=== PATIENT | male | born 1955 | race African-American/Black ===

== ENCOUNTER 2017-03-19 10:53 | Emergency (ER) | payer BC, SELFPAY ==
--- NOTE | 2017-03-19 12:35 | ULT ---
LEFT LOWER EXTREMITY VENOUS DOPPLER: 03/19/2017 PROVIDED CLINICAL HISTORY: Left leg pain. FINDINGS: Blandon-scale and color Doppler sonography with spectral analysis was performed of the left common femor al, femoral, popliteal, posterior tibial, greater saphenous, and profunda femoral veins, demonstratin g a normal sonographic appearance to each. IMPRESSION: No sonographic evidence for left lower extremity deep venous thrombosis. POS: [facility]
[2017-03-19] MEDS ORDERED: HYDROcodone/Acetaminophen 10/325 mg Tablet ONE (16:11)
--- NOTE | 2017-03-19 16:26 | RAD ---
LEFT FOOT THREE VIEWS: 03/19/17 HISTORY: Left foot pain. FINDINGS: Lisfranc joint alignment is anatomic. Pes planus is apparent on the lateral view. There is mild to mo derate osteophytosis throughout the foot. Osseous structures are demineralized. Degenerative changes are most pronounced at the interphalangeal joint of the big toe. There is pencil sharpener erosive changes involving the distal phalanges of the toes, with relative sparring of the third toe. No aggressive osseous erosions are otherwise demonstrated. IMPRESSION: In addition to the osteoarthritic changes of the left foot, there is pencil sharpener erosive changes involving the distal phalanges. This is more likely related to chronic collagen vascular disease gabo n inflammatory arthritis. POS: [facility]
[2017-03-19 16:32] LABS: #Eosinphils 0.2 thou/uL (0.0-0.7); #Monocytes 0.6 thou/uL (0.11-0.59); #Neutrophils 9.6 thou/uL (1.40-6.50); %Basophils 0.3 % (0.0-1.0); %Eosinophils 1.2 % (0.0-10.0); %Lymphocytes 22.3 % (21.0-51.0); %Monocytes 4.4 % (0.0-10.0); Hematocrit 47.3 % (42.0-52.0); Mean Platelet Volume 7.3 fL (7.4-10.4); Red Blood Cell (RBC) Count 4.96 mill/uL (4.70-6.10); White Blood Cell (WBC) Count 13.4 thou/uL (4.8-10.8)
[2017-03-19 16:57] LABS: ALT (SGPT) 9 U/L (8-55); AST (SGOT) 12 U/L (5-34); Alkaline Phosphatase 106 U/L (40-150); Anion Gap 15 mmol/L (10-20); BUN (Urea Nitrogen) 10 mg/dL (8.4-25.7); Bilirubin, Total 0.4 mg/dL (0.2-1.2); Calc. Creatinine Clearance 0 mL/min (70-130); Calcium 10.4 mg/dL (7.8-10.44); Carbon Dioxide 27 mmol/L (23-31); Chloride 100 mmol/L (98-107); Estimated GFR-MDRD Greater than 90; Globulin 4.6 g/dL (2.4-3.5); Protein, Total 9.3 g/dL (5.8-8.1)
== END 2017-03-19 17:35 | disposition home or self-care (01) ==
LOC: ERS 10:53
DX: L03.032 Cellulitis of left toe (principal); S91.102A Unspecified open wound of left great toe without damage to nail, initial encounter; I10 Essential (primary) hypertension; Z71.6 Tobacco abuse counseling; F17.210 Nicotine dependence, cigarettes, uncomplicated
CPT/HCPCS: 36415; 80053; 85025; 85652; 86140; 87070; 87077; 87186; 87205; 99406

== ENCOUNTER 2017-05-15 08:43 | Emergency (ER) | payer SELFPAY ==
[2017-05-15 09:43] LABS: #Eosinphils 0.3 thou/uL (0.0-0.7); #Lymphocytes 3.1 thou/uL (1.20-3.40); #Neutrophils 9.3 thou/uL (1.40-6.50); %Basophils 0.3 % (0.0-1.0); %Eosinophils 2.3 % (0.0-10.0); %Lymphocytes 22.5 % (21.0-51.0); %Monocytes 7.2 % (0.0-10.0); %Neutrophils 67.6 % (42.0-75.0); Hemoglobin 13.2 g/dL (14.0-18.0); Mean Corpuscular HGB CONC 32.7 g/dL (32.0-36.0); Mean Corpuscular Hemoglobin 30.3 pg (27.0-31.0); Mean Corpuscular Volume 92.8 fl (80.0-94.0); Platelet Count 340 thou/uL (130-400); RBC Distribution Width 12.4 % (11.5-14.5); Red Blood Cell (RBC) Count 4.35 mill/uL (4.70-6.10); White Blood Cell (WBC) Count 13.7 thou/uL (4.8-10.8)
[2017-05-15 10:05] LABS: AST (SGOT) 12 U/L (5-34); Bilirubin, Total 0.3 mg/dL (0.2-1.2); Calcium 9.4 mg/dL (7.8-10.44); Chloride 99 mmol/L (98-107); Potassium 3.7 mmol/L (3.5-5.1); Sodium 135 mmol/L (136-145)
[2017-05-15 10:09] LABS: ALT (SGPT) 8 U/L (8-55); Albumin 4.1 g/dL (3.4-4.8); Alkaline Phosphatase 97 U/L (40-150); BUN (Urea Nitrogen) 10 mg/dL (8.4-25.7); Calc. Creatinine Clearance 0 mL/min (70-130); Carbon Dioxide 27 mmol/L (23-31); Estimated GFR-MDRD Greater than 90; Globulin 4.7 g/dL (2.4-3.5); Glucose 88 mg/dL (80-115); Protein, Total 8.8 g/dL (5.8-8.1)
[2017-05-15 10:10] LABS: Anion Gap 13 mmol/L (10-20)
[2017-05-15] MEDS ORDERED: Ondansetron HCl/PF 4 MG/2 ML Vial ONE (10:55)
--- NOTE | 2017-05-15 11:25 | CT ---
CT ANGIOGRAM OF THE ABDOMEN AND PELVIS AND BILATERAL LOWER EXTREMITIES WITH IV CONTRAST AND 3D MIP RE CONSTRUCTIONS: PROVIDED CLINICAL HISTORY: Left lower extremity claudication. FINDINGS: The visualized lung edwards are free of significant opacity. The liver, spleen, pancreas, kidneys, and adrenal glands demonstrate an unremarkable CT appearance. There is no bowel dilatation, inflammatory fat stranding, free fluid, or lymph node enlargement appar ent. The abdominal aorta is nonaneurysmal. The celiac, superior mesenteric, bilateral renal and inferior mesenteric arteries appear patent. There is a patent appearance to both common iliac arteries. There is occlusion of the left external iliac artery from the common iliac bifurcation through the inferior epigastric origin of the common f emoral artery. The right external iliac artery demonstrates no high-grade stenosis. The internal il iac arteries demonstrate multifocal irregularity. Involving the right lower extremity, the right common femoral, profunda femoral, and proximal to mid superficial femoral arteries demonstrate no high-grade stenosis. Multifocal irregularity involving t he right superficial femoral artery. There is focal short-segment occlusion of the right distal supe rficial femoral artery just proximal to the adductor hiatus. The popliteal artery on the right demon strates no high-grade stenosis. There is multifocal atherosclerotic irregularity involving the anter ior tibial, posterior tibial, and peroneal arteries. The posterior tibial artery is opacified to the level of the mid calf. The anterior tibial and peroneal arteries are opacified to the level of the foot. On the left, the common femoral and profunda femoral arteries demonstrate no high-grade stenosis. Th ere is atherosclerotic irregularity involving the proximal left superficial femoral artery. There is long-segment occlusion of the superficial femoral artery commencing approximately the mid thigh and extending approximately 10 cm distal to this. There is reconstitution at about the level of the addu ctor hiatus. There is multifocal irregularity of the left popliteal artery. There is multifocal irr egularity involving the left anterior tibia, posterior tibial, and peroneal arteries. The posterior tibial and peroneal arteries appear opacified to the level of the ankle. The anterior tibial artery appears opacified to the level of the distal calf. The osseous structures demonstrate no concerning osteoblastic or osteolytic lesions. IMPRESSION: 1. Occlusion of the left external iliac artery with reconstitution at the common femoral via epigast pamela collateralization. 2. Long-segment occlusion of the distal left superficial femoral artery. 3. Short-segment occlusion of the distal right superficial femoral artery. 4. Other findings as above. POS: [facility]
[2017-05-15] MEDS ORDERED: ISOVUE-370 76%-LOCM 1 ML ONE (11:49)
--- NOTE | 2017-05-15 20:12 | CON ---
DATE OF CONSULTATION: 05/15/2017 HISTORY OF PRESENT ILLNESS: A 61-year-old gentleman rather poor historian who lives in [place]. He w as evidently seen by Dr. Maxwell today and referred to the emergency room with a 4-6 week history of left great toe that is painful and black. He was seen by Dr. Morse about 1 month ago. A callo us was taken off the great toe by Dr. Morse. PAST MEDICAL HISTORY: Significant for longstanding smoking history. He continues to smoke a half pa ck of cigarettes a day. He lives with a daughter for the past 2 years. 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 He admits that he cannot walk very far due to discomfort in his leg. He has had no fever at home. His past medical history i ncludes hypertension. He also has chronic pain for which he is on medication. MEDICATIONS: Some sort of blood pressure medication, he thinks amlodipine as well as gabapentin. PAST SURGICAL HISTORY: He has had robotic prostatectomy at [facility] in 2013. He has had previous back and neck surgery. ALLERGIES: He has no known allergies. PHYSICAL EXAMINATION: GENERAL: He is an alert, cooperative gentleman, sitting on the side of the stretcher. NECK: No carotid bruits. LUNGS: Clear to auscultation anteriorly. CARDIAC: Regular rate and rhythm. No murmurs. ABDOMEN: Soft, nontender. Healed incision just above the umbilicus was about 2 cm in length. EXTREMITIES: He has a palpable right femoral pulse, absent left femoral pulse. He has a strong Dopp ler signal in his right foot and I am unable to obtain any Doppler signals in his left foot. His lef t great toe is black and shriveled with no evidence of erythema, no tenderness or swelling in the ruchi t. A CT angiogram was done demonstrating occlusion of both superficial femoral arteries distally with th e left external iliac artery occluded at its origin and then extending down to the level of the circu mflex femoral vessels where his common femoral is patent. At this time, the patient probably needs a orto at least left femoral bypass. I have told him that we can proceed with this after he stopped sm oking for a couple of weeks. I will see him in the office in about 2 weeks and if he has stopped smo gerber can proceed with surgical intervention.
== END 2017-05-15 14:22 | disposition home or self-care (01) ==
LOC: ERS 08:43
DX: M79.675 Pain in left toe(s) (principal); I10 Essential (primary) hypertension; F17.210 Nicotine dependence, cigarettes, uncomplicated
CPT/HCPCS: 75635; 80053; 85025; 96374; 96375; J2270; J2405

== ENCOUNTER 2017-06-24 08:23 | Outpatient (CLI) | payer OTHER ==
[2017-06-24 08:47] VITALS: BMI 25.0
[2017-06-24 10:54] LABS: #Eosinphils 0.2 thou/uL (0.0-0.7); #Monocytes 0.8 thou/uL (0.11-0.59); #Neutrophils 10.8 thou/uL (1.40-6.50); %Basophils 0.1 % (0.0-1.0); %Eosinophils 1.2 % (0.0-10.0); %Lymphocytes 14.2 % (21.0-51.0); %Monocytes 6.1 % (0.0-10.0); %Neutrophils 78.3 % (42.0-75.0); Hemoglobin 11.9 g/dL (14.0-18.0); Mean Corpuscular HGB CONC 32.3 g/dL (32.0-36.0); Mean Corpuscular Hemoglobin 29.6 pg (27.0-31.0); Mean Corpuscular Volume 91.8 fl (80.0-94.0); Mean Platelet Volume 6.9 fL (7.4-10.4); Platelet Count 415 thou/uL (130-400); RBC Distribution Width 12.4 % (11.5-14.5); Red Blood Cell (RBC) Count 4.01 mill/uL (4.70-6.10); White Blood Cell (WBC) Count 13.8 thou/uL (4.8-10.8)
--- NOTE | 2017-06-24 11:04 | RAD ---
2 VIEW CHEST: Date: 06/24/17 CLINICAL HISTORY: Pre-admission evaluation. FINDINGS: The lungs are clear. There is no effusion or pneumothorax. Cardiac silhouette is normal in size. Ther e is mild osseous degenerative change. IMPRESSION: No focal consolidation. POS: [facility]
[2017-06-24 11:14] LABS: Anion Gap 13 mmol/L (10-20); BUN (Urea Nitrogen) 13 mg/dL (8.4-25.7); Calc. Creatinine Clearance 104 mL/min (70-130); Calcium 9.6 mg/dL (7.8-10.44); Carbon Dioxide 28 mmol/L (23-31); Chloride 98 mmol/L (98-107); Estimated GFR-MDRD Greater than 90; Glucose 78 mg/dL (80-115); Potassium 4.4 mmol/L (3.5-5.1); Sodium 135 mmol/L (136-145)
--- NOTE | 2017-07-21 11:03 | EKG ---
Test Reason : Blood Pressure : / mmHG Vent. Rate : 099 BPM Atrial Rate : 099 BPM P-R Int : 142 ms QRS Dur : 084 ms QT Int : 336 ms P-R-T Axes : 080 065 042 degrees QTc Int : 431 ms Normal sinus rhythm Voltage criteria for left ventricular hypertrophy Abnormal ECG When compared with ECG of 11-MAR-2016 11:25, No significant change was found Confirmed by YASIR AMEZQUITA M.D. ([id number] on 07/21/2017 11:03:10 AM Referred By: CELESTE Confirmed By:YASIR AMEZQUITA M.D.
== END 2017-06-24 08:24 | disposition home or self-care (01) ==
LOC: LABBT 08:23
PROVIDERS: ATTEND Thoracic Surgery (Cardiothoracic Vascular Surgery)
DX: Z01.818 Encounter for other preprocedural examination (principal); I73.9 Peripheral vascular disease, unspecified
CPT/HCPCS: 71046; 80048; 85025; 86850; 86900; 86901; 93005; 93010

== ENCOUNTER 2017-06-24 09:30 | Inpatient (IN) | payer OTHER, SELFPAY ==
[2017-06-25] MEDS ORDERED: CEFAZOLIN/Water 2 GM/20 ML SYRINGE ONE (06:06)
[2017-06-25] MEDS ORDERED: Heparin 10,000 UNITS/1 ML VIAL 30,000 UNITS in Sodium Chloride 0.9% 1,000 ML FS SCH (06:30)
[2017-06-25] MEDS ORDERED: Fentanyl 100 MCG/2 ML VIAL ONE ×2 (07:24→10:13)
[2017-06-25] MEDS ORDERED: Protamine Sulfate 50 MG/5 ML VIAL ONE (09:13)
--- NOTE | 2017-06-25 09:32 | HP ---
HISTORY OF PRESENT ILLNESS: This is a 61-year-old gentleman with rest pain in his left great toe peggy n that is painful and black. He was initially seen by Dr. Morse about 2-1/2 months ago where a ca llous was taken off the great toe. The patient at that time was diagnosed as having severe periphera l arterial disease. He has a longstanding smoking history and was smoking a half to one pack of ciga rettes a day and living with his daughter for the past 2 years. 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 He is unable to ambulate any sig nificant distance due to discomfort in his leg. PAST MEDICAL HISTORY: Includes hypertension and chronic pain. PAST SURGICAL HISTORY: Includes robotic prostatectomy in 2013, previous lumbar and cervical spine thomas rgery. REVIEW OF SYSTEMS: The patient is having difficulty sleeping due to nocturnal rest pain in his left foot. It is not relieved with tramadol. SOCIAL HISTORY: As of his last visit 1 month ago, he was still smoking 3 cigarettes a day, but is ev idently stopped this. MEDICATIONS: Include lisinopril 5 mg a day, gabapentin 300 at bedtime, pain medication. He was also instructed to begin aspirin 81 mg a day on his last visit 1 month ago. He has a history of noseblee ds when he was on aspirin in the remote past when he was seen by Dr. Sy for a stress test. PHYSICAL EXAMINATION: VITAL SIGNS: Blood pressure 120/80, height 5 feet 8 inches, weight 153. GENERAL: Alert, cooperative gentleman, well-nourished, in no distress. NECK: No carotid bruits. CARDIAC: Regular rate and rhythm. No murmurs. LUNGS: Clear to auscultation. ABDOMEN: Soft, nontender, nondistended. EXTREMITIES: His left great toe is black with no drainage, but does have some odor. He has palpable right femoral pulse with an absent left femoral pulse. He has a strong Doppler signal in his right foot and no Doppler signal in his left foot. Workup includes a CT angiogram demonstrating occluded bilateral superficial femoral arteries with a l eft external iliac artery occlusion. Potentially, the patient could have a left pelvic approach for a left common iliac to femoral artery bypass or aortobifemoral bypass. He will receive bowel prep an d we will plan on surgical intervention this week.
[2017-06-25] MEDS ORDERED: Promethazine HCl 25 MG/ML VIAL SLOW IVP PRN ×2 (10:12→11:39)
[2017-06-25] MEDS ORDERED: Ondansetron HCl/PF 4 MG/2 ML Vial IVP PRN ×3 (10:12→11:39)
[2017-06-25] MEDS ORDERED: Promethazine HCl 25 MG/ML VIAL IM PRN ×2 (10:12→10:17)
[2017-06-25] MEDS ORDERED: diphenhydrAMINE 50 MG/ML VIAL IVP PRN (10:17)
[2017-06-25] MEDS ORDERED: Naloxone HCl 0.4 mg/ml Vial IV PRN (10:17)
[2017-06-25] MEDS ORDERED: diphenhydrAMINE 25 MG CAP PO PRN (10:17)
[2017-06-25] MEDS ORDERED: diphenhydrAMINE 50 MG/ML VIAL IM PRN (10:17)
[2017-06-25] MEDS ORDERED: Zolpidem Tartrate 5 MG TAB PO PRN (10:17)
[2017-06-25] MEDS ORDERED: Communication Order-Pharmacy FS SCH (10:30)
[2017-06-25] MEDS ORDERED: Fentanyl 100 MCG/2 ML VIAL SLOW IVP PRN ×2 (11:39)
[2017-06-25] MEDS ORDERED: Acetaminophen 325 MG TAB PO PRN (11:39)
[2017-06-25] MEDS ORDERED: hydrALAZINE 20 MG/ML VIAL SLOW IVP PRN (11:39)
[2017-06-25] MEDS ORDERED: HYDROcodone/Acetaminophen 5/325 mg Tablet PO PRN ×2 (11:39)
[2017-06-25] MEDS ORDERED: Phenylephrine 10 MG/NS 250 ML 250 ML IVPB PRN (11:39)
[2017-06-25] MEDS ORDERED: Nitroglycerin 50 MG/250 ML BOT 250 ML IVPB PRN (11:39)
[2017-06-25] MEDS: Lactated Ringer's 1,000 ML IV SCH (11:40)
--- NOTE | 2017-06-25 12:10 | OP ---
PREOPERATIVE DIAGNOSIS: Gangrene, left foot with rest pain. PROCEDURE: Aorto left common femoral right external iliac artery bypass with 14 x 7 mm Hemashield gr aft. SURGEON: Venkatesh Haynes M.D. MERCHANDISE FLOW TEAM LEADER: Dr. Clarke. TRANSFUSION: None. ESTIMATED BLOOD LOSS: 100 mL PROCEDURE IN DETAIL: After adequate anesthesia had been obtained, the patient was prepped and draped . Dr. Clarke exposed the left common femoral artery while I performed a midline abdominal incision. There was a small hernia related to previous midline incision and this was excised. Bowel was rotate d to the right exposing the distal aorta and proximal right common iliac artery. Tunnel was created to the right external iliac artery and into the left groin, retro-ureter fashion. Heparin was admini stered and ACT was checked. The distal aorta was cross clamped as was the common iliac arteries. Th e distal aorta was then oversewn with a double layer of 3-0 Prolene suture, following which the 14 x 7 mm graft was anastomosed in an end-to-end fashion to the distal aorta with a running 4-0 Prolene thomas ture. Following this, limbs were brought through the tunnels and in the left groin, the common femor al artery was opened and an end-to-side anastomosis completed to the distal common femoral artery. F ollowing this, the right external iliac artery was opened in a similar end-to-side anastomosis comple amanda. Protamine was then given to reverse the heparin partially. Graft was reperitonealized in two a reas, following which the bowel was returned to the abdominal cavity. Fascia was closed with a doubl e stranded PDS suture. Subcutaneous tissue and skin were closed in layers in the left groin and then the abdominal incision was closed. The patient is to be taken to the ICU in guarded condition.
[2017-06-25] MEDS ORDERED: PROPOFOL 200 MG/20 ML VIAL ONE (13:28)
[2017-06-25] MEDS ORDERED: Lidocaine 1% PF 5 ML VIAL ONE (13:28)
[2017-06-25] MEDS ORDERED: Dexamethasone 20 MG/5 ML VIAL ONE (13:28)
[2017-06-25] MEDS ORDERED: Glycopyrrolate 0.2 MG/ML 5 ML SYRINGE ONE (13:28)
[2017-06-25] MEDS ORDERED: Ondansetron HCl/PF 4 MG/2 ML Vial ONE (13:28)
[2017-06-25] MEDS ORDERED: Heparin 10,000 UNITS/ 10 ML VIAL ONE (13:28)
[2017-06-25] MEDS: CEFAZOLIN/Water 2 GM/20 ML SYRINGE SLOW IVP SCH ×2 (14:30→22:37)
[2017-06-26] MEDS: Lactated Ringer's 1,000 ML IV SCH ×4 (00:38→21:26)
[2017-06-26 05:36] LABS: Anion Gap 10 mmol/L (10-20); BUN (Urea Nitrogen) 10 mg/dL (8.4-25.7); Calc. Creatinine Clearance 102 mL/min (70-130); Calcium 8.7 mg/dL (7.8-10.44); Carbon Dioxide 28 mmol/L (23-31); Chloride 102 mmol/L (98-107); Estimated GFR-MDRD Greater than 90; Glucose 83 mg/dL (80-115); Sodium 136 mmol/L (136-145)
[2017-06-26] MEDS: CEFAZOLIN/Water 2 GM/20 ML SYRINGE SLOW IVP SCH (05:47)
[2017-06-26 05:54] LABS: Band 9 % (5-11); Hemoglobin 9.6 g/dL (14.0-18.0); Lymphocytes 19 % (21-51); MDiff Complete? YES; Mean Corpuscular HGB CONC 32.9 g/dL (32.0-36.0); Mean Corpuscular Hemoglobin 29.4 pg (27.0-31.0); Mean Corpuscular Volume 89.5 fl (80.0-94.0); Mean Platelet Volume 6.6 fL (7.4-10.4); Neutrophil 72 % (42-75); PLT Morphology Comment Appears Adequate; Platelet Count 341 thou/uL (130-400); RBC Distribution Width 12.5 % (11.5-14.5); Red Blood Cell (RBC) Count 3.25 mill/uL (4.70-6.10); White Blood Cell (WBC) Count 17.1 thou/uL (4.8-10.8)
[2017-06-26] MEDS: Enoxaparin Sodium 30 MG/0.3 ML SYRINGE SC SCH (09:21)
[2017-06-26] MEDS: Acetaminophen 1,000 MG in Premix Bag 1 BAG IVPB SCH ×2 (12:35→18:21)
[2017-06-26] MEDS: Morphine CADD 1 MG/ML CADD IVPB PRN (18:20)
[2017-06-27] MEDS: Acetaminophen 1,000 MG in Premix Bag 1 BAG IVPB SCH ×3 (00:43→15:32)
[2017-06-27] MEDS: Lactated Ringer's 1,000 ML IV SCH ×3 (05:43→21:01)
[2017-06-27 07:30] LABS: Hemoglobin 9.7 g/dL (14.0-18.0); Mean Corpuscular HGB CONC 32.9 g/dL (32.0-36.0); Mean Corpuscular Hemoglobin 29.3 pg (27.0-31.0); Mean Corpuscular Volume 89.1 fl (80.0-94.0); Mean Platelet Volume 6.6 fL (7.4-10.4); Platelet Count 331 thou/uL (130-400); RBC Distribution Width 12.3 % (11.5-14.5); Red Blood Cell (RBC) Count 3.32 mill/uL (4.70-6.10); White Blood Cell (WBC) Count 20.7 thou/uL (4.8-10.8)
[2017-06-27 07:48] LABS: Anion Gap 11 mmol/L (10-20); BUN (Urea Nitrogen) 7 mg/dL (8.4-25.7); Calc. Creatinine Clearance 113 mL/min (70-130); Calcium 8.7 mg/dL (7.8-10.44); Carbon Dioxide 28 mmol/L (23-31); Chloride 98 mmol/L (98-107); Estimated GFR-MDRD Greater than 90; Glucose 86 mg/dL (80-115); Potassium 3.7 mmol/L (3.5-5.1); Sodium 133 mmol/L (136-145)
[2017-06-27] MEDS: Metoprolol Tartrate 25 MG TAB PO SCH ×2 (08:18→21:01)
[2017-06-27 08:30] LABS: Band 8 % (5-11); Lymphocytes 13 % (21-51); MDiff Complete? YES; Monocytes 4 % (0-10); Neutrophil 75 % (42-75); PLT Morphology Comment Appears Adequate; Polychromasia SLIGHT = 2-3 cells (100X) (0-2/hpf)
[2017-06-27] MEDS: Enoxaparin Sodium 30 MG/0.3 ML SYRINGE SC SCH (08:57)
[2017-06-27] MEDS ORDERED: Fentanyl 100 MCG/2 ML VIAL ONE ×2 (11:04)
[2017-06-27] MEDS ORDERED: CEFAZOLIN/Water 2 GM/20 ML SYRINGE ONE (11:19)
[2017-06-27] MEDS ORDERED: Promethazine HCl 25 MG/ML VIAL IM PRN (13:32)
[2017-06-27] MEDS ORDERED: Ondansetron HCl/PF 4 MG/2 ML Vial IVP PRN (13:32)
[2017-06-27] MEDS ORDERED: Promethazine HCl 25 MG/ML VIAL SLOW IVP PRN (13:32)
--- NOTE | 2017-06-27 13:46 | OP ---
DATE OF PROCEDURE: 06/27/2017 PREOPERATIVE DIAGNOSIS: Gangrenous left foot with peripheral artery disease. POSTOPERATIVE DIAGNOSIS: Gangrenous left foot with peripheral artery disease. PROCEDURE: Left nhthx-sec-kulx amputation. SURGEON: Dr. Venkatesh Haynes ANESTHESIA: General. ESTIMATED BLOOD LOSS: 300. PROCEDURE: After adequate anesthesia had been obtained, the patient was prepped and draped. Initial ly, incision was made around the base of the great toe extending onto the dorsum of the foot around t he obviously gangrenous portion. There was no bleeding and tissues did not appear viable at the site of incision. A second incision was then made around the base of the second toe extending out from t he initial incision and once again there did not appear to be any viable tissue. This wound was then draped off from the field and a formal below knee amputation was carried out with a posterior flap. Bones were divided and specimen removed from the field. Hemostasis was obtained, following which 2 layers were used to close the gastroc muscle over the tibia and fibula. The area had been thoroughly irrigated prior to closure. Shubham were used on the skin and the patient had a knee immobilizer pl aced to be taken to the recovery room and then ICU.
--- NOTE | 2017-06-27 14:48 | RAD ---
CHEST 1 VIEW: HISTORY: Vascular surgery. Postop. COMPARISON: 06/24/17. FINDINGS: Cardiac silhouette is unremarkable. Pulmonary vasculature is slightly engorged. Large dense infiltr ate over the right mid chest is favored to be within the anterior segment right upper lobe. Linear a telectasis projects over each lung base. Mediastinum is midline. No evidence of pneumothorax. IMPRESSION: 1. Right upper lobe infiltrate. Clinical correlation regarding other signs and symptoms of right up per lobe pneumonitis is required. 2. Chronic obstructive pulmonary disease. 3. Bibasilar atelectasis. POS: [facility]
[2017-06-27 15:12] LABS: #Eosinphils 0.1 thou/uL (0.0-0.7); #Lymphocytes 1.6 thou/uL (1.20-3.40); #Neutrophils 18.2 thou/uL (1.40-6.50); %Eosinophils 0.3 % (0.0-10.0); %Lymphocytes 7.6 % (21.0-51.0); %Monocytes 4.7 % (0.0-10.0); %Neutrophils 87.4 % (42.0-75.0); Hemoglobin 9.2 g/dL (14.0-18.0); Mean Corpuscular HGB CONC 33.2 g/dL (32.0-36.0); Mean Corpuscular Hemoglobin 29.7 pg (27.0-31.0); Mean Corpuscular Volume 89.4 fl (80.0-94.0); Mean Platelet Volume 6.1 fL (7.4-10.4); Platelet Count 311 thou/uL (130-400); RBC Distribution Width 12.3 % (11.5-14.5); White Blood Cell (WBC) Count 20.8 thou/uL (4.8-10.8)
[2017-06-27] MEDS ORDERED: PHENYLEPHRINE-NS 100 MCG/ML 10 ML SYRINGE ONE (16:57)
[2017-06-27] MEDS ORDERED: Lidocaine 1% PF 5 ML VIAL ONE (16:57)
[2017-06-27] MEDS ORDERED: Succinylcholine Chloride 20 MG/ML 10 ml SYRINGE FS ONE (16:57)
[2017-06-27] MEDS ORDERED: PROPOFOL 200 MG/20 ML VIAL ONE (16:57)
[2017-06-27] MEDS: Piperacillin/Tazobactam 3.375 GM in Sodium Chloride 0.9% 100 ML IVPB SCH ×2 (17:00→23:49)
[2017-06-27] MEDS: Acetaminophen 325 MG TAB PO PRN (21:01)
[2017-06-27] MEDS: Tamsulosin HCl 0.4 MG CAP PO SCH (21:02)
[2017-06-28] MEDS: Acetaminophen 325 MG TAB PO PRN (00:20)
[2017-06-28 05:15] LABS: #Eosinphils 0.1 thou/uL (0.0-0.7); #Lymphocytes 2.1 thou/uL (1.20-3.40); #Monocytes 1.2 thou/uL (0.11-0.59); #Neutrophils 16.1 thou/uL (1.40-6.50); %Eosinophils 0.4 % (0.0-10.0); %Lymphocytes 10.6 % (21.0-51.0); %Monocytes 6.1 % (0.0-10.0); %Neutrophils 82.9 % (42.0-75.0); Hemoglobin 8.4 g/dL (14.0-18.0); Mean Corpuscular HGB CONC 33.1 g/dL (32.0-36.0); Mean Corpuscular Hemoglobin 29.4 pg (27.0-31.0); Mean Corpuscular Volume 88.6 fl (80.0-94.0); Mean Platelet Volume 6.5 fL (7.4-10.4); Platelet Count 312 thou/uL (130-400); RBC Distribution Width 12.4 % (11.5-14.5); Red Blood Cell (RBC) Count 2.85 mill/uL (4.70-6.10); White Blood Cell (WBC) Count 19.4 thou/uL (4.8-10.8)
[2017-06-28 05:35] LABS: Anion Gap 13 mmol/L (10-20); BUN (Urea Nitrogen) 6 mg/dL (8.4-25.7); Calc. Creatinine Clearance 112 mL/min (70-130); Calcium 8.3 mg/dL (7.8-10.44); Carbon Dioxide 25 mmol/L (23-31); Chloride 96 mmol/L (98-107); Estimated GFR-MDRD Greater than 90; Glucose 97 mg/dL (80-115); Potassium 3.7 mmol/L (3.5-5.1); Sodium 130 mmol/L (136-145)
[2017-06-28] MEDS: Piperacillin/Tazobactam 3.375 GM in Sodium Chloride 0.9% 100 ML IVPB SCH ×3 (05:58→17:05)
[2017-06-28] MEDS: Lactated Ringer's 1,000 ML IV SCH ×3 (05:59→16:44)
[2017-06-28] MEDS ORDERED: Potassium Chloride 20 MEQ in Premix Bag 1 BAG IVPB SCH (07:30)
[2017-06-28] MEDS: Metoprolol Tartrate 25 MG TAB PO SCH ×2 (09:07→21:07)
[2017-06-28] MEDS: Enoxaparin Sodium 30 MG/0.3 ML SYRINGE SC SCH (09:08)
--- NOTE | 2017-06-28 09:09 | RAD ---
CHEST 1 VIEW: Date: 06/28/17 HISTORY: Bypass. Infiltrate. Follow-up. COMPARISON: 06/27/17. FINDINGS: Cardiac silhouette is magnified by projection. Pulmonary vasculature is upper limits of normal. Infil trate at the right upper lobe is again demonstrated. Parenchymal opacity at the right lung base has p rogressed slightly. Linear atelectasis at the left base is stable. IMPRESSION: Slight interval progression right lower lobe infiltrate. Right upper lobe infiltrate is stable. Bhaskar nued radiographic follow-up is suggested. POS: [facility]
--- NOTE | 2017-06-28 09:55 | PRG ---
DATE OF SERVICE: 06/28/2017 SUBJECTIVE: Awake, alert and responsive. He said he is less short of breath. OBJECTIVE: VITAL SIGNS: Temperature 98, blood pressure 120/68, pulse 80, respiration rate 18, sats 94%. CHEST: Chest reveals decreased breath sounds without any wheezing. CARDIAC: Normal S1, S2, no gallops. ABDOMEN: Soft. No masses. LABORATORY DATA: White count 19,000, H&H is 8 and 25, platelet count normal. Sodium 130. IMPRESSION: Chronic obstructive pulmonary disease, right-sided pneumonia, status post aortobifemoral . PLAN: Continue neb treatment, Zosyn, supportive care. We will follow.
[2017-06-28] MEDS ORDERED: Acetaminophen 325 MG TAB PO PRN (18:00)
[2017-06-28] MEDS: Tamsulosin HCl 0.4 MG CAP PO SCH (21:07)
[2017-06-28] MEDS: Morphine CADD 1 MG/ML CADD IVPB PRN (21:08)
[2017-06-29] MEDS: Piperacillin/Tazobactam 3.375 GM in Sodium Chloride 0.9% 100 ML IVPB SCH ×4 (00:08→17:11)
[2017-06-29] MEDS: Lactated Ringer's 1,000 ML IV SCH (03:37)
[2017-06-29 04:20] LABS: #Eosinphils 0.3 thou/uL (0.0-0.7); #Lymphocytes 1.8 thou/uL (1.20-3.40); #Neutrophils 13.3 thou/uL (1.40-6.50); %Basophils 0.1 % (0.0-1.0); %Eosinophils 1.6 % (0.0-10.0); %Lymphocytes 10.6 % (21.0-51.0); %Monocytes 6.3 % (0.0-10.0); %Neutrophils 81.3 % (42.0-75.0); Hemoglobin 7.7 g/dL (14.0-18.0); Mean Corpuscular HGB CONC 34.3 g/dL (32.0-36.0); Mean Corpuscular Hemoglobin 30.6 pg (27.0-31.0); Mean Corpuscular Volume 89.1 fl (80.0-94.0); Mean Platelet Volume 6.8 fL (7.4-10.4); Platelet Count 341 thou/uL (130-400); RBC Distribution Width 12.5 % (11.5-14.5); White Blood Cell (WBC) Count 16.4 thou/uL (4.8-10.8)
[2017-06-29 04:31] LABS: Anion Gap 10 mmol/L (10-20); BUN (Urea Nitrogen) 5 mg/dL (8.4-25.7); Calc. Creatinine Clearance 112 mL/min (70-130); Calcium 8.6 mg/dL (7.8-10.44); Carbon Dioxide 29 mmol/L (23-31); Chloride 99 mmol/L (98-107); Estimated GFR-MDRD Greater than 90; Glucose 92 mg/dL (80-115); Potassium 3.9 mmol/L (3.5-5.1); Sodium 134 mmol/L (136-145)
[2017-06-29] MEDS: Enoxaparin Sodium 30 MG/0.3 ML SYRINGE SC SCH (07:48)
[2017-06-29] MEDS: Metoprolol Tartrate 25 MG TAB PO SCH ×2 (07:48→21:01)
--- NOTE | 2017-06-29 07:54 | RAD ---
CHEST 1 VIEW: Date: 06/29/17 HISTORY: Surgery. Follow-up. COMPARISON: 06/28/17. FINDINGS: Cardiac silhouette is magnified by projection. Pulmonary vasculature is similar in appearance to the prior study and degree of congestion. Patchy infiltrate throughout the right lung and the left lung b ase is again demonstrated. Mediastinum is midline. No evidence of pneumothorax. IMPRESSION: Pulmonary vascular congestion, bilateral infiltrates, and other findings are stable. POS: [facility]
[2017-06-29] MEDS ORDERED: Fentanyl 100 MCG/2 ML VIAL SLOW IVP PRN (08:06)
[2017-06-29] MEDS ORDERED: HYDROcodone/Acetaminophen 5/325 mg Tablet PO PRN (08:06)
[2017-06-29] MEDS ORDERED: Furosemide 20 MG/2 ML VIAL SLOW IVP SCH (08:45)
[2017-06-29] MEDS: HYDROcodone/Acetaminophen 5/325 mg Tablet PO PRN ×4 (08:52→21:02)
--- NOTE | 2017-06-29 11:03 | CON ---
DATE OF CONSULTATION: 06/27/2017 HISTORY OF PRESENT ILLNESS: A 61-year-old gentleman in the ICU status post left BK amputation for peripheral vascular disease. He had a chest x-ray taken, which shows a dense upper lung infiltrate and a smaller infiltrate in the left base. He had an x-ray taken not long ago which was normal suggesting this could be an aspiration related event. He is denying any difficulty breathing, coughing or chest pain, chills or sweats. He has ongoing tobacco abuse. Pack a day for most of his life. He has got girlfriend at the bedside who gives additional information. PAST MEDICAL HISTORY: Chronic pain and hypertension. PAST SURGICAL HISTORY: Prostate, lumbar spinal surgery and chronic pain, left foot. MEDICATIONS: Hydrocodone 10, gabapentin 300, Norvasc 10. SOCIAL/FAMILY HISTORY: Hepainter. REVIEW OF SYSTEMS: Ten point negative. PHYSICAL EXAMINATION: VITAL SIGNS: Temperature 98, pulse 112, blood pressure 130\74 sats 93%. GENERAL: Awake, responsive. HEENT: Nose unremarkable, throat poor dental care. NECK: No adenopathy. CHEST: Reveals decreased breath sounds, no wheezing or crackles. CARDIAC: Normal S1, S2. No gallops. ABDOMEN: Soft. No masses. NEUROLOGIC: He is awake, alert, responsive. EXTREMITIES: No edema. Recent left BK amputation of right leg unremarkable. LABORATORY DATA: White count 20,000, hemoglobin 9, hematocrit 27, platelet count is 231. His electrolytes are normal. X-ray shows the above described bilateral bronchopneumonia, right greater than left. IMPRESSION: 1. Status post below-knee amputation, left. 2. Chronic obstructive pulmonary disease. 3. Pneumonia. 4. Peripheral vascular disease. 5. Ongoing tobacco abuse. PLAN: I have added Zosyn to his antibiotic, neb treatment, supportive care. Will follow along the MICU. This is a consultation note, 70 minutes of which 50% was spent in direct patient care. GURMEET
--- NOTE | 2017-06-29 13:54 | PRG ---
DATE OF SERVICE: 06/29/2017 SUBJECTIVE: Awake, alert, and responsive. He said he is better. He is less short of breath, less c ough. OBJECTIVE: VITAL SIGNS: Sats are 95% on 3 liters, respirations 21, blood pressure 124/86, respiratory rate 18. CHEST: Bilateral rhonchi and crackles. CARDIAC: Normal S1-S2. No gallops. ABDOMEN: No mass. LABORATORY DATA: White count is 6000, H&H is 7 and 22, platelet count is normal. Electrolytes are n ormal. X-ray shows less edema. IMPRESSION: 1. Chronic obstructive pulmonary disease/pneumonia. 2. Status post aortofemoral bypass. PLAN: Continue Zosyn, neb treatment, supportive care, and PT. We will follow.
[2017-06-29] MEDS: Tamsulosin HCl 0.4 MG CAP PO SCH (21:01)
[2017-06-30] MEDS: Piperacillin/Tazobactam 3.375 GM in Sodium Chloride 0.9% 100 ML IVPB SCH ×2 (00:17→06:06)
[2017-06-30] MEDS: HYDROcodone/Acetaminophen 5/325 mg Tablet PO PRN ×4 (04:22→20:16)
[2017-06-30] MEDS: Enoxaparin Sodium 30 MG/0.3 ML SYRINGE SC SCH (08:41)
[2017-06-30] MEDS: Metoprolol Tartrate 25 MG TAB PO SCH ×2 (08:41→20:17)
[2017-06-30] MEDS: Amoxicillin/Potassium Clav 875 MG TAB PO SCH ×2 (12:19→20:17)
--- NOTE | 2017-06-30 15:26 | PRG ---
DATE OF SERVICE: 06/30/2017 SUBJECTIVE: This morning, he is awake, alert, and responsive. OBJECTIVE: VITAL SIGNS: Sats 98% on room air, temperature is 98, pulse 90, respiratory rate 18, and blood press ure 116/59. CHEST: He is coughing up some relatively clear sputum. Chest reveals rhonchi, right greater than le ft. CARDIAC: Normal S1 and S2, no gallops. ABDOMEN: Soft, no masses. IMPRESSION: Status post right-sided pneumonia with chronic obstructive pulmonary disease, hypertensi on, and peripheral vascular disease. PLAN: I switched him over to oral antibiotics. Continue neb treatments. He would probably be trans ferred out of the ICU. We will follow.
[2017-06-30] MEDS: Tamsulosin HCl 0.4 MG CAP PO SCH (20:17)
[2017-07-01] MEDS: HYDROcodone/Acetaminophen 5/325 mg Tablet PO PRN ×5 (02:35→22:12)
[2017-07-01 04:50] LABS: #Eosinphils 0.5 thou/uL (0.0-0.7); #Lymphocytes 1.9 thou/uL (1.20-3.40); #Monocytes 1.1 thou/uL (0.11-0.59); #Neutrophils 10.6 thou/uL (1.40-6.50); %Basophils 0.1 % (0.0-1.0); %Eosinophils 3.3 % (0.0-10.0); %Lymphocytes 13.7 % (21.0-51.0); %Monocytes 7.9 % (0.0-10.0); Hemoglobin 7.6 g/dL (14.0-18.0); Mean Corpuscular HGB CONC 33.1 g/dL (32.0-36.0); Mean Corpuscular Hemoglobin 29.3 pg (27.0-31.0); Mean Corpuscular Volume 88.5 fl (80.0-94.0); Mean Platelet Volume 6.2 fL (7.4-10.4); Platelet Count 474 thou/uL (130-400); RBC Distribution Width 12.6 % (11.5-14.5); White Blood Cell (WBC) Count 14.2 thou/uL (4.8-10.8)
[2017-07-01 05:25] VITALS: BMI 21.3
[2017-07-01] MEDS: Amoxicillin/Potassium Clav 875 MG TAB PO SCH ×2 (08:27→22:04)
[2017-07-01] MEDS: Metoprolol Tartrate 25 MG TAB PO SCH ×2 (08:27→22:05)
[2017-07-01] MEDS: Enoxaparin Sodium 30 MG/0.3 ML SYRINGE SC SCH (08:28)
[2017-07-01] MEDS: Docusate 100 MG CAP PO SCH ×2 (08:28→22:05)
--- NOTE | 2017-07-01 14:02 | PRG ---
DATE OF SERVICE: 07/01/2017 This morning he is awake, alert, responsive, less pain. PHYSICAL EXAMINATION: VITAL SIGNS: Blood pressure 130/69, sats are 100%, respirations 18. I's and O's 2940 in, 5085 out. CHEST: Chest reveals decreased breath sounds, no wheezing. CARDIAC: Normal S1, S2. NECK: Soft, no masses. LABORATORY DATA: White count 14,000, H&H 7 and 23, platelet count 474. IMPRESSION: 1. Status post left mugqf-guc-rtit amputation. 2. Gangrenous left foot. 3. Pneumonia. 4. Tobacco abuse. PLAN: Colace was initated as stool softener. Continue antibiotics. He can probably be transferred out of the ICU.
[2017-07-01] MEDS: Tamsulosin HCl 0.4 MG CAP PO SCH (22:04)
[2017-07-02] MEDS: HYDROcodone/Acetaminophen 5/325 mg Tablet PO PRN ×4 (04:45→20:38)
[2017-07-02] MEDS: Amoxicillin/Potassium Clav 875 MG TAB PO SCH ×2 (08:33→20:28)
[2017-07-02] MEDS: Metoprolol Tartrate 25 MG TAB PO SCH ×2 (08:33→20:27)
[2017-07-02] MEDS: Enoxaparin Sodium 30 MG/0.3 ML SYRINGE SC SCH (08:33)
[2017-07-02] MEDS: Docusate 100 MG CAP PO SCH ×2 (08:33→20:28)
--- NOTE | 2017-07-02 09:03 | PRG ---
DATE OF SERVICE: 07/02/2017 This morning he says he is better. PHYSICAL EXAMINATION: VITAL SIGNS: O2 sats 90% on room air, pulse is 93, respiration 14, temperature is 98, blood pressure 118/59. CHEST: Chest reveals decreased breath sounds, bilateral rhonchi, right greater than left. CARDIAC: Normal S1, S2, no gallops. ABDOMEN: Soft. IMPRESSION: 1. Right-sided pneumonia, probably aspiration. 2. Chronic obstructive pulmonary disease. 3. Tobacco abuse. 4. Left pkmvt-btv-uagg amputation. 5. Peripheral neuropathy. PLAN: Continue aggressive PT and supportive care. Disposition as per surgery.
[2017-07-02] MEDS: Tamsulosin HCl 0.4 MG CAP PO SCH (20:28)
[2017-07-03] MEDS: HYDROcodone/Acetaminophen 5/325 mg Tablet PO PRN ×2 (06:10→10:30)
[2017-07-03 08:21] VITALS: BP 112/63; TEMP 98.5
[2017-07-03] MEDS: Docusate 100 MG CAP PO SCH (09:39)
[2017-07-03] MEDS: Enoxaparin Sodium 30 MG/0.3 ML SYRINGE SC SCH (09:39)
[2017-07-03] MEDS: Metoprolol Tartrate 25 MG TAB PO SCH (09:39)
[2017-07-03] MEDS: Amoxicillin/Potassium Clav 875 MG TAB PO SCH (09:39)
--- NOTE | 2017-07-03 09:42 | DIS ---
DATE OF ADMISSION: 06/25/2017 DATE OF DISCHARGE: . HOSPITAL COURSE: This is a 61-year-old gentleman who presented to the emergency room about 2 months ago with a gangrenous toe. He ultimately underwent an aortobifemoral bypass. Postoperatively, he trejo d a good Doppler signal in his popliteal; however, had no Doppler signals in his foot. This was prob ably not inconsistent with his initial CT scan showing occlusion of his left SFA, right SFA and sever e tibioperoneal disease. It was elected to proceed with a left below knee amputation on 06/27/2017, which was performed. Course subsequently was unremarkable. His vital signs were stable and he was p articipating with therapy. At the time of discharge, he had minimal spotting from his abdominal inci joan on his gown; however, this incision overall looked good. His groin incision was clean and dry a nd his stump incision on the left showed some minimal bloody drainage, but otherwise skin appeared vi able. He will be discharged home today on amoxicillin 1 p.o. b.i.d., Tylenol #3, metoprolol 25 b.i.d . and he has been instructed to take an 81 aspirin daily. Discharge and follow up instructions have been given to he and his girlfriend/ and all questions have been answered.
--- NOTE | 2017-07-03 12:00 | PRG ---
DATE OF SERVICE: 07/03/2017 SUBJECTIVE: This morning, he is awake, alert, responsive. He is better. OBJECTIVE: VITAL SIGNS: Sats are 90% on room air, temperature 98, blood pressure 112/63. CHEST: No coughing. Decreased breath sounds without any wheezing. CARDIAC: Normal S1-S2. No gallops. ABDOMEN: Soft. No masses. IMPRESSION: Status post left bilateral knee amputation, peripheral vascular disease, chronic obstruc tive pulmonary disease, pneumonia. PLAN: The patient is much improved, he is going to be discharged home today. See in the office as ruddy leslie.
== END 2017-07-03 11:58 | disposition home or self-care (01) | DRG 270 ==
LOC: SURG A 06-25 05:36 → CCU 06-25 10:16 → SURG B 06-26 18:19 → CCU 06-27 15:14 → SURG A 07-01 17:46
PROVIDERS: ADMIT Thoracic Surgery (Cardiothoracic Vascular Surgery); ATTEND Thoracic Surgery (Cardiothoracic Vascular Surgery)
PROC: 04100JJ Bypass Abdominal Aorta to Left Femoral Artery with Synthetic Substitute, Open Approach (ICD-10-PCS; 2017-06-25)
PROC: 04100JD Bypass Abdominal Aorta to Right External Iliac Artery with Synthetic Substitute, Open Approach (ICD-10-PCS; 2017-06-25)
PROC: 0Y6J0Z3 Detachment at Left Lower Leg, Low, Open Approach (ICD-10-PCS; principal; 2017-06-27)
DX: I70.262 Atherosclerosis of native arteries of extremities with gangrene, left leg (principal); J69.0 Pneumonitis due to inhalation of food and vomit; J44.0 Chronic obstructive pulmonary disease with (acute) lower respiratory infection; G89.29 Other chronic pain; I10 Essential (primary) hypertension; F17.210 Nicotine dependence, cigarettes, uncomplicated; I70.222 Atherosclerosis of native arteries of extremities with rest pain, left leg; E87.6 Hypokalemia
CPT/HCPCS: 36415; 71045; 80048; 85025; 86850; 86900; 86901; 87070; 87205; 88307; 94640; A4216; G8978-GP-CK; G8978-GP-CL; G8979-GP-CI; G8979-GP-CJ; J0131; J0360; J1100; J1642; J1644; J1650; J1940; J2001; J2274; J2405; J2543; J2704; J2720; J3010; J3370; J3480; J7050; J7620

== ENCOUNTER 2019-11-21 17:03 | Emergency (ER) | payer MEDICARE, OTHER ==
--- NOTE | 2019-11-21 18:13 | RAD ---
LEFT ELBOW RADIOGRAPHS: Date: 11-21-2019 PROVIDED CLINICAL HISTORY: Pain FINDINGS: There is no evidence for fracture or other osseous abnormality. No significant elbow joint capillary distension. Alignment appears anatomic. Joint spaces appear preserved. Olecranon enthesophytes format ion is seen. IMPRESSION: No evidence for an acute osseous abnormality. If there is persistent clinical concern, conservative m anagement and follow up imaging are advised. POS: [facility]
--- NOTE | 2019-11-21 18:44 | ULT ---
LEFT UPPER EXTREMITY VENOUS DOPPLER: Date: 11-21-2019 PROVIDED CLINICAL HISTORY: Left arm pain FINDINGS: Blandon scale and color Doppler sonography with spectral analysis was performed of the left internal jug ular, subclavian, axillary, brachial, basilic, cephalic, radial and ulnar veins demonstrating a arben l sonographic appearance to each. IMPRESSION: No sonographic evidence for left upper extremity deep venous thrombosis. POS: [facility]
== END 2019-11-21 19:07 | disposition home or self-care (01) ==
LOC: ERS 17:03
DX: M25.522 Pain in left elbow (principal); I10 Essential (primary) hypertension; F17.210 Nicotine dependence, cigarettes, uncomplicated; Z79.899 Other long term (current) drug therapy